=== PATIENT | male | born 1945 | race Caucasian/White ===

== ENCOUNTER → 2016-07-15 | Outpatient (CLI) | payer MEDICARE, OTHER | END | disposition home or self-care (01) | LOC: LAB.O 08:20 | PROVIDERS: ATTEND Nurse Practitioner Family | DX: E78.2 Mixed hyperlipidemia (principal); Z12.5 Encounter for screening for malignant neoplasm of prostate; E03.9 Hypothyroidism, unspecified | CPT/HCPCS: 36415; 80053; 80061; 84443; 85025; G0103 ==

== ENCOUNTER → 2016-08-22 | Outpatient (CLI) | payer MEDICARE, OTHER | END | disposition home or self-care (01) | LOC: YCFC.O 16:38 | PROVIDERS: ATTEND Nurse Practitioner Family | DX: E03.9 Hypothyroidism, unspecified (principal) ==

== ENCOUNTER → 2016-09-03 | Outpatient (CLI) | payer MEDICARE, OTHER | END | disposition home or self-care (01) | LOC: RESP 13:39 | PROVIDERS: ATTEND Nuclear Medicine Nuclear Cardiology | DX: R00.2 Palpitations (principal) ==

== ENCOUNTER → 2016-10-01 | Outpatient (CLI) | payer MEDICARE, OTHER | END | disposition home or self-care (01) | LOC: YCFC.O 16:10 | PROVIDERS: ATTEND Nurse Practitioner Family | DX: E03.9 Hypothyroidism, unspecified (principal) ==

== ENCOUNTER → 2017-03-03 | Outpatient (CLI) | payer MEDICARE, OTHER ==
--- NOTE | 2017-03-04 05:11 | RAD ---
Procedure: XR CHEST 2 VIEWS Exam Date: 03/03/2017 Ordering Provider: ELISABET Cam Clinical Indication: SOB Comparison: 06/09/2014 Findings: Cardiomediastinal silhouette: Within normal limits Pulmonary vasculature : Unremarkable Aortic contour: Unremarkable Focal lung consolidation: Peribronchial thickening without focal lung consolidation. Pleural effusion: None Pneumothorax: None Bones and soft tissues: Nonacute Impression: 1. Peribronchial thickening without focal lung consolidation. Electronically signed by: Boaz Blue MD 03/04/2017 5:10 AM [facility]
== END | disposition home or self-care (01) ==
LOC: LAB.O 07:11
PROVIDERS: ATTEND Nurse Practitioner Family
DX: E03.9 Hypothyroidism, unspecified (principal); R06.02 Shortness of breath; E78.2 Mixed hyperlipidemia; I10 Essential (primary) hypertension

== ENCOUNTER → 2017-03-19 | Outpatient (CLI) | payer MEDICARE, OTHER ==
--- NOTE | 2017-03-20 15:28 | RAD ---
EXAM DESCRIPTION: Chest,2 Views CLINICAL HISTORY: SOB. This is a 71-year-old male who presents with acute onset shortness of breath. COMPARISON: March 03, 2017. FINDINGS: 2 views of the thorax. Emphysema and chronic interstitial lung disease is present. No focal consolidation is present. Heart size is within normal limits. No acute osseous pathology is demonstrated IMPRESSION: Chronic interstitial lung disease. No convincing radiographic findings for acute cardiopulmonary disease. Electronically signed by: Franklin Subramanian MD 03/20/2017 3:26 PM [facility]
== END | disposition home or self-care (01) ==
LOC: RAD 15:14
PROVIDERS: ATTEND Nurse Practitioner Family
DX: R06.02 Shortness of breath (principal)

== ENCOUNTER 2017-05-01 21:18 | Emergency (ER) | payer MEDICARE, OTHER ==
[2017-05-01] MEDS ORDERED: ASPIRIN TABLET 325 MG TAB PO ONE (21:32)
[2017-05-01] MEDS ORDERED: NITROGLYCERIN 0.4 MG 25 EA TAB SL ONE (21:33)
[2017-05-01] MEDS ORDERED: HEPARIN PREMIX 500 ML ONE (21:40)
--- NOTE | 2017-05-01 21:42 | ED.PDOC ---
History of Present Illness - General Chief Complaint: Cardiovascular Problem Stated Complaint: chest pain Time Seen by Provider: 05/01/17 21:32 Source: patient Exam Limitations: no limitations - History of Present Illness Timing/Duration: 1-3 hours - 2 hrs [employer] Severity/Quality: moderate, other - burning Location: substernal Chest Pain Radiation: arms Activities at Onset: none Prior Chest Pain/Cardiac Workup: no prior chest pain Improving Factors: nothing Worsening Factors: nothing Nitro Today/Relief: no nitro taken today Aspirin Treatment Today: 325 mg x 1, provided at home Associated Symptoms: shortness of breath Allergies/Adverse Reactions: Allergies NO KNOWN ALLERGY Allergy (Verified 11/23/13 09:52) Home Medications: Ambulatory Orders Aspirin [Aspirin EC] 81 mg PO DAILY 11/23/13 Baclofen 10 mg PO BID 11/23/13 Clopidogrel Bisulfate 75 mg PO DAILY 11/23/13 Levothyroxine Sodium [Synthroid] 50 mcg PO DAILY 11/23/13 Metoprolol Succinate [Metoprolol Succinate ER] 25 mg PO DAILY 11/23/13 Niacin (Antihyperlipidemic) [Niaspan] 500 mg PO BID 11/23/13 Review of Systems - Review of Systems Constitutional: Denies: chills, diaphoresis, fever EENTM: States: no symptoms reported Respiratory: States: short of breath. Denies: cough, orthopnea Cardiology: States: chest pain. Denies: edema Gastrointestinal/Abdominal: States: nausea. Denies: abdominal pain, vomiting Genitourinary: States: no symptoms reported Musculoskeletal: States: no symptoms reported Skin: States: no symptoms reported Neurological: States: no symptoms reported Endocrine: States: no symptoms reported Past Medical History (General) - Patient Medical History Hx Seizures: No Hx Stroke: Yes - 5, last one 2011 Hx Dementia: No Hx Asthma: No Hx of COPD: No Hx Cardiac Disorders: Yes - hyperlipidema Hx Congestive Heart Failure: No Hx Pacemaker: No Hx Hypertension: Yes Hx Thyroid Disease: No Hx Diabetes: No Hx Gastroesophageal Reflux: No Hx Renal Disease: No Hx Cancer: No Hx of HIV: No Hx Hepatitis C: No Hx MRSA: No - Vaccination History Hx Tetanus, Diphtheria Vaccination: Yes Hx Influenza Vaccination: Yes Hx Pneumococcal Vaccination: Yes - Social History Hx Tobacco Use: Yes Hx Chewing Tobacco Use: No Hx Alcohol Use: No Hx Substance Use: No Hx Substance Use Treatment: No Hx Depression: No Hx Physical Abuse: No Hx Emotional Abuse: No Hx Suspected Abuse: No - Female History Patient : No Family Medical History - Family History Father Living Status: Age at (years of age): 93 Hx Cardiac Disease: Yes Physical Exam - Physical Exam General Appearance: Alert, Anxious, Obvious distress Eyes, Ears, Nose, Throat Exam: PERRL/EOMI, pharynx normal Neck: non-tender, full range of motion Respiratory: chest non-tender, lungs clear, normal breath sounds Cardiovascular/Chest: normal peripheral pulses, regular rate, rhythm, no edema Gastrointestinal/Abdominal: normal bowel sounds, non tender, soft Extremity: normal range of motion, non-tender, no pedal edema Neurologic: normal mood/affect, oriented x 3 Skin Exam: normal color, warm/dry Lymphatic: no adenopathy Progress - EKG/XRAY/CT EKG: Sinus, ST elevation - 1 mm elevation in inferior leads Comments: rate 60, DC 184, QRS 80, comparison 11/23/[address] 's inferiorly - Additional EKG/XRAY/Consults EKG #2: Navin, Sinus, ST elevation - inferior elevations more pronounced with reciprocal changes anterolaterally Comments: rate 57, DC 156, QRS 88 Departure - Departure Clinical Impression: Acute myocardial infarction Qualifiers: Myocardial infarction ST status: ST elevation myocardial infarction Involved coronary artery: other inferior wall coronary artery Qualified Code(s): I21.19 - ST elevation (STEMI) myocardial infarction involving other coronary artery of inferior wall Disposition: Transfer to Hospital Condition: Fair Departure Forms: ED Discharge - Pt. Copy, Patient Portal Self Enrollment Instructions: DI for Chest Pain Referrals: Tracey Cam NP [Primary Care Provider] - 1-2 Weeks Home Medications: Ambulatory Orders Aspirin [Aspirin EC] 81 mg PO DAILY 11/23/13 Baclofen 10 mg PO BID 11/23/13 Clopidogrel Bisulfate 75 mg PO DAILY 11/23/13 Levothyroxine Sodium [Synthroid] 50 mcg PO DAILY 11/23/13 Metoprolol Succinate [Metoprolol Succinate ER] 25 mg PO DAILY 11/23/13 Niacin (Antihyperlipidemic) [Niaspan] 500 mg PO BID 11/23/13 Comments: Dr Rivers accepted transfer of pt to [facility]
[2017-05-01 21:43] VITALS: TEMP 98.6; O2SAT 95
[2017-05-01] MEDS ORDERED: HEPARIN PREMIX 25,000 UNITS in PREMIX BAG 1 BAG IVS SCH (21:45)
[2017-05-01] MEDS ORDERED: NITROGLYCERIN/D5W IV 50,000 MCG in PREMIX BOTTLE 1 BOTTLE IVS SCH (22:00)
[2017-05-01] MEDS ORDERED: SODIUM CHLORIDE 0.9% 1000ML 1,000 ML ONE (22:02)
[2017-05-01] MEDS ORDERED: SODIUM CHLORIDE 0.9% 500ML 500 ML IVS ONE (22:07)
[2017-05-01] MEDS ORDERED: TENECTEPLASE 50 MG VIAL ONE (22:08)
[2017-05-01] MEDS ORDERED: TENECTEPLASE 50 MG VIAL IV ONE (22:15)
--- NOTE | 2017-05-01 22:22 | RAD ---
EXAM: Chest,1 View CLINICAL INDICATION: 71-year-old male with chest pain. TECHNIQUE: Single view, AP portable chest was obtained. COMPARISON: Single view chest 03/19/2017. FINDINGS: Unremarkable cardiac and mediastinal silhouette. Heart size is normal. Hazy bilateral basilar opacities may be secondary to subsegmental atelectasis or scarring similar in comparison to the previous examination, however for which superimposed infectious process cannot be excluded. Lungs are otherwise clear without focal opacity, pneumothorax or pleural effusions. The visualized bones are within normal limits. IMPRESSION: Hazy bilateral basilar opacities similar in comparison to the previous examination may be secondary to subsegmental atelectasis or consolidation, however superimposed infectious cannot be excluded. Please correlate with patient clinical findings and consider follow-up for resolution. Electronically signed by: Meseret Mariano MD 05/01/2017 10:21 PM [facility]
[2017-05-01] MEDS ORDERED: HEPARIN SODIUM (PORCINE) 5,000 U/ML VIAL IV ONE (22:34)
[2017-05-02 02:04] VITALS: BP 128/78
== END 2017-05-01 23:00 | disposition short-term general hospital (02) ==
LOC: ER 21:18
DX: I21.19 ST elevation (STEMI) myocardial infarction involving other coronary artery of inferior wall (principal); E78.5 Hyperlipidemia, unspecified; I10 Essential (primary) hypertension; Z86.73 Personal history of transient ischemic attack (TIA), and cerebral infarction without residual deficits; Z87.891 Personal history of nicotine dependence
CPT/HCPCS: 36415; 71045; 80053; 84484; 85025; 93005; J1644; J3101; J7030

== ENCOUNTER → 2017-07-30 | Outpatient (CLI) | payer MEDICARE, OTHER ==
--- NOTE | 2017-07-31 10:40 | RAD ---
EXAM DESCRIPTION: Chest,2 Views CLINICAL HISTORY: SOB COMPARISON: Previous study May 01, 2017 TECHNIQUE: PA/lateral FINDINGS: There is no acute appearing cardiac or pulmonary abnormality. Heart size is normal with normal pulmonary vascularity. No pleural effusion or pneumothorax. Lungs are clear with no consolidating infiltrate. Lateral view shows intact sternum and T-spine. Lung bases appear better aerated than on the previous study. Minimal discoid atelectasis or linear scarring may account for mildly increased markings in the lower lobes. IMPRESSION: No acute process is identified in the chest. Electronically signed by: Cain Ray MD 07/31/2017 10:39 AM CDT
== END ==
LOC: LAB.O 16:27
PROVIDERS: ATTEND Nurse Practitioner Family
DX: R06.02 Shortness of breath (principal); R06.00 Dyspnea, unspecified

== ENCOUNTER → 2017-10-07 | Outpatient (CLI) | payer MEDICARE, OTHER | LOC: YCFC.O 07:15 | PROVIDERS: ATTEND Nurse Practitioner Family | DX: E78.2 Mixed hyperlipidemia (principal); I21.9 Acute myocardial infarction, unspecified; I10 Essential (primary) hypertension; Z86.73 Personal history of transient ischemic attack (TIA), and cerebral infarction without residual deficits; Z13.220 Encounter for screening for lipoid disorders ==

== ENCOUNTER → 2018-01-13 | Outpatient (CLI) | payer MEDICARE, OTHER ==
--- NOTE | 2018-01-14 09:05 | CT ---
Procedure: CT LUNG SCREENING Exam Date: 03/15/2018. Ordering Provider: Bradley Moreno Clinical Indication: LUNG SCREEN This patient meets eligibility criteria for low-dose CT lung cancer screening. Comparison: None. Technique: Using a multislice scanner, sequential helical axial imaging was obtained in the thorax, 2.5 mm thickness, 2.5 mm separation, from the level of the thoracic inlet through the lung bases without IV contrast. A low dose protocol was utilized. CTDI: 1.75 mGy. 120. kVp. 45 mA. 2D sagittal and coronal reconstructed images, 6.0 mm thickness, were obtained. This exam was performed according to our departmental dose optimization program which includes use of automated exposure control, adjustment of the mA and/or kV according to patient size and/or use of iterative reconstruction technique. Measurements of nodules less than 1 cm in greatest diameter will be given as the mean value. FINDINGS: Lungs and large airways: Multiple emphysematous centrilobular blebs bilateral upper lung wright slightly decreasing in frequency toward the lower lung wright. Pleural-based bulla are present. 7 mm solid nodule in the lingula of the left middle lobe on axial sequence 2, images 66-67, might be associated with the lingular fissure, with short dimension craniocaudal. No calcification. Scarring abutting the superior left major fissure and the pleura. Groundglass nodule 5 mm in the posterior left upper lobe on image 30. 3 mm nodule subpleural lateral superior segment left lower lobe with pleural extension on image 86. Groundglass nodule/density measuring 1.4 x 1.0 x 0.8 cm in the anterior lateral aspect of the superior segment of the right lower lobe on axial images 78-83 and sagittal series 602, images 30-34. Solid nodule measuring 4 mm in the anterior inferior right upper lobe subpleural location on axial series 2, image 51. Pleura: Bilateral apical pleural thickening and scarring. No pleural effusion or pneumothorax. Mediastinum and galina: evaluation limited by low dose technique and lack of IV contrast. No enlarged lymph nodes or soft tissue masses. Heart and great vessels: Coronary artery calcifications. Possible stent in the right coronary artery. Atherosclerotic calcifications of the aorta. Chest wall, lower neck, axillae: Evaluation also limited by same factors as described above. Small axilla nodes bilaterally. Upper abdomen: Included peritoneal cavity with no mass or fluid. Normal size and density of the adrenal glands and spleen. Surgical clips in the gallbladder fossa. Bones: Minimal thoracic spondylosis IMPRESSION: Groundglass density in superior segment of the right lower lobe greatest diameter 1.4 cm. 7 mm solid nodule in the left middle lobe, possibly associated with the lingular fissure. Groundglass nodular 5 mm in the left upper lobe. 4 mm solid nodule in the right upper lobe. Emphysematous changes probably centrilobular, throughout the lungs more severe in the upper lung wright with more pleural-based bulla in the upper lobes. Please see lung RADS category and recommendations below. Lung RADS category Category 3 - Probably benign (1-2% malignancy probability), short term follow-up suggested. Nodules: Solid nodule(s) 6mm to less than 8mm at baseline, or new 4mm to under 6mm solid nodule. Solid nodule(s) 6mm to less than 8mm at baseline, or new 4mm to under 6mm solid nodule. Follow-up: Please return for a Low Dose Chest CT in 6 months for re-evaluation. Electronically signed by: Michael Alvarez MD 01/14/2018 8:55 AM CDT
== END ==
LOC: CT 13:30
PROVIDERS: ATTEND Family Medicine
DX: Z87.891 Personal history of nicotine dependence (principal); Z12.2 Encounter for screening for malignant neoplasm of respiratory organs; R91.1 Solitary pulmonary nodule

== ENCOUNTER → 2018-03-29 | Outpatient (CLI) | payer MEDICARE, OTHER | LOC: LAB.O 08:14 | PROVIDERS: ATTEND Nurse Practitioner Family | DX: E03.9 Hypothyroidism, unspecified (principal); I10 Essential (primary) hypertension; E78.2 Mixed hyperlipidemia; Z12.5 Encounter for screening for malignant neoplasm of prostate | CPT/HCPCS: 36415; 80053; 80061; 84443; 85025; G0103 ==

== ENCOUNTER → 2018-04-21 | Outpatient (CLI) | payer MEDICARE, OTHER | LOC: LAB.O 10:35 | PROVIDERS: ATTEND Nurse Practitioner Family | DX: E03.9 Hypothyroidism, unspecified (principal) ==

== ENCOUNTER → 2018-05-04 | Outpatient (CLI) | payer MEDICARE, OTHER ==
--- NOTE | 2018-05-04 19:06 | CT ---
EXAM DESCRIPTION: Chest w/o Contrast CLINICAL HISTORY: 72 years, Male, LUNG NODULE MULTIPLE COMPARISON: CT lung screening study January 13, 2018 TECHNIQUE: Thin-section noncontrast axial CT images are obtained according to our protocol. Reconstructed MPR images are created and reviewed as well. FINDINGS: Lungs: Biapical pleural parenchymal scarring is unchanged in configuration compared to previous study. No enlarging area or area of increasing thickness or change in shape to suggest complicating scar carcinoma. Severe emphysema is seen bilaterally. Small nodule in the anterior segment right upper lobe appears unchanged and measures 6 mm. Another small nodule in the anterior segment left upper lobe measures 8 mm and is also unchanged. Small nodular density along the right major fissure is consistent with intramammary lymph node. Minimal linear scarring in the lingula and right middle lobe. Peripheral nodule in the lateral basal segment right lower lobe measures 8 mm on the present study compared to 6 mm on the previous exam. There was blurring from respiratory motion on the previous study and this may account for the variance. With question of slight increase in size, six-month follow-up CT is recommended. No acute-appearing consolidation. Tiny cavitary nodules in the peripheral left lower lobe are unchanged, the larger measuring 6 mm. Mediastinum: Lymph nodes are normal in size. Normal vascular contours. Heart size is normal with no pericardial effusion. There is extensive coronary arterial calcification. Chest wall/axilla: No mass or adenopathy. Lower neck/supraclavicular: No mass or adenopathy. Upper abdomen: Question gallstone. Otherwise unremarkable upper abdominal viscera. Coronal and sagittal reformatted images confirm the findings. IMPRESSION: Right lower lobe nodule measures 2 mm larger than on previous study. Six month follow-up chest CT is recommended. Severe diffuse emphysema. Biapical pleural parenchymal scarring appears stable. Other small pulmonary nodules appear stable. Extensive coronary arterial calcification. This exam was performed according to our departmental dose-optimization program, which includes automated exposure control, adjustment of the mA and/or kV according to patient size and/or use of iterative reconstruction technique. Total DLP equals 592.92 mGycm. Electronically signed by: Cain Ray MD 05/04/2018 7:04 PM [employer] CL[employer]
== END ==
LOC: CT 15:35
PROVIDERS: ATTEND Internal Medicine
DX: J84.9 Interstitial pulmonary disease, unspecified (principal); R91.1 Solitary pulmonary nodule; J43.9 Emphysema, unspecified; I25.10 Atherosclerotic heart disease of native coronary artery without angina pectoris

== ENCOUNTER → 2018-06-24 | Outpatient (CLI) | payer MEDICARE, OTHER | LOC: YCFC.O 16:27 | PROVIDERS: ATTEND Nurse Practitioner Family | DX: E03.9 Hypothyroidism, unspecified (principal) ==

== ENCOUNTER → 2018-07-05 | Outpatient (CLI) | payer MEDICARE, OTHER ==
--- NOTE | 2018-07-06 09:16 | CT ---
EXAM DESCRIPTION: Chest w/o Contrast CLINICAL HISTORY: 72 years Male, ABNORMAL LOW DOSE SCREENING COMPARISON: CT chest 05/04/2018, 01/13/2018. TECHNIQUE: CT images through the chest without IV contrast. Multiplanar reformations were provided. This exam was performed according to our departmental dose-optimization program, which includes automated exposure control, adjustment of the mA and/or kV according to patient size and/or use of iterative reconstruction technique. CT CHEST FINDINGS: Heart and mediastinum: Heart is normal size. No significant pericardial effusion. Mild aortic atherosclerosis. Extensive coronary calcification redemonstrated. No mediastinal lymphadenopathy. Evaluation for hilar lymphadenopathy limited without intravenous contrast. Esophagus is unremarkable. Thyroid Gland: Normal. Lungs: Bilateral emphysematous changes. Biapical pleural scarring. Stable 6 mm round solid pulmonary nodule in the right upper lobe on image 56. Stable 9 mm oval solid pulmonary nodule in the right lower lobe on image 84. Stable 7 mm irregular nodule in the posterior lateral left lower lobe on image 84. Airways: No filling defects or bronchiectasis. Pleura: No effusion or pneumothorax. Subphrenic Structures: Degenerative changes of spinal no acute fracture or aggressive appearing osseous lesion. Soft tissues unremarkable with no axillary lymphadenopathy. Musculoskeletal and Soft Tissues: Within normal limits for age. IMPRESSION: 1. No acute abnormality of the chest. 2. Bilateral pulmonary nodules measuring up to 9 mm in the right lower lobe are unchanged from 05/04/2018, but increased from 01/13/2018 as previously mentioned on this comparison report. Continue follow-up is recommended Fleischner guidelines below. 3. Emphysema. Multiple Solid lung nodules > 8 mm: Follow up management based on most suspicious nodule. In a low-risk patient, recommend a non-contrast Chest CT at 3-6 months, then consider another non-contrast Chest CT at 18-24 months. In a high-risk patient, recommend a non-contrast Chest CT at 3-6 months, then another non-contrast Chest CT at 18-24 months. These guidelines do not apply to patients younger than 35 years, immunocompromised patients, and patients with cancer. F/u in patients with significant comorbidities as clinically warranted. For lung cancer screening, adhere to Lung-RADS guidelines. Reference: Radiology. 2017 Sep; 284(1):228-24 Electronically signed by: Rusty Cesar MD 07/06/2018 9:13 AM CDT
== END ==
LOC: CT 15:26
PROVIDERS: ATTEND Family Medicine
DX: Z87.891 Personal history of nicotine dependence (principal); R91.8 Other nonspecific abnormal finding of lung field; J43.9 Emphysema, unspecified

== ENCOUNTER → 2018-10-06 | Outpatient (CLI) | payer MEDICARE, OTHER | LOC: LAB.O 07:05 | PROVIDERS: ATTEND Nurse Practitioner Family | DX: E03.9 Hypothyroidism, unspecified (principal); I10 Essential (primary) hypertension; E78.2 Mixed hyperlipidemia; E55.9 Vitamin D deficiency, unspecified; E56.9 Vitamin deficiency, unspecified; D50.9 Iron deficiency anemia, unspecified; Z12.5 Encounter for screening for malignant neoplasm of prostate | CPT/HCPCS: 36415; 80053; 80061; 82306; 82728; 83540; 83550; 84439; 84443; 84481; 85025; 86376; G0103 ==

== ENCOUNTER → 2018-11-09 | Outpatient (CLI) | payer MEDICARE, OTHER ==
--- NOTE | 2018-11-10 08:52 | US ---
US THYROID CLINICAL STATEMENT: ACQUIRED HYPOTHYROIDISM. COMPARISON: CT scan of the chest and lower neck on 07/05/2018. TECHNIQUE: Transcutaneous scanning, grayscale and Doppler modes. FINDINGS: Significant amount of thyroid tissue not seen, including bilateral lobes and isthmus. Estimated total number of nodules greater than or equal to 1 cm: None. No dominant soft tissue mass or distinct cyst. No large calcifications or fluid collection. IMPRESSION: 1. No discernible thyroid tissue seen in the normal location. Patient hypothyroid. This is in agreement with CT scan 4 months ago. 2. Consider radionuclide I-123 uptake measurements and scan. This would be helpful to evaluate thyroid uptake of iodine, assess functioning thyroid tissue, and determine if there is an autonomous thyroid nodule or cold nodule. *ACR TI-RADS 2017 Recommendations for thyroid nodule imaging: TR1: No FNA or follow up TR2: No FNA or follow up TR3: FNA if >/= 2.5 cm, follow up if 1.5 - 2.4 cm in 1, 3, and 5 years TR4: FNA if >/= 1.5 cm, follow up if 1.0 - 1.4 cm in 1, 2, 3, and 5 years TR5: FNA if >/= 1.0 cm, follow up if 0.5 - 0.9 cm every year for 5 years ACR TI-RADS recommends that no more than two nodules with the highest ACR TI-RADS total point should be biopsied and no more than four nodules should be followed. These recommendations do not apply to patients with increased risk for thyroid cancer or patients with symptomatic thyroid disease. Electronically signed by: Michael Alvarez MD 11/10/2018 8:50 AM CDT
== END ==
LOC: US 15:36
PROVIDERS: ATTEND Internal Medicine Endocrinology, Diabetes & Metabolism
DX: E03.9 Hypothyroidism, unspecified (principal); Z83.49 Family history of other endocrine, nutritional and metabolic diseases

== ENCOUNTER → 2019-01-10 | Outpatient (CLI) | payer MEDICARE, OTHER ==
--- NOTE | 2019-01-11 09:30 | CT ---
EXAM DESCRIPTION: Chest w/o Contrast CLINICAL HISTORY: 73 years Male, Multiple nodules of lung COMPARISON: CT chest dated 07/05/2018, 05/04/2018 and 01/13/2018. TECHNIQUE: Contiguous thin section axial images through the chest were obtained without the administration of intravenous contrast. Sagittal and coronal reconstructions were reviewed. FINDINGS: The visualized thyroid gland and supraclavicular region appear normal. No evidence of abnormally enlarged mediastinal, hilar or axillary lymphadenopathy. Trachea is midline and the central tracheobronchial tree is patent. Severe emphysema bilateral lungs with mild scarring in the apices. 5 mm nodule is identified in the right upper lobe on image #30. 4.5 mm pleural-based nodule is identified along the right major fissure in the right lower lobe. 8mm nodule is identified in the right lower lobe on image #43. 6 mm nodule is identified in the left lower lobe on image #38. 8.5 mm nodule is identified in the left upper lobe on image #32. No evidence of pleural effusions. The heart is normal in size with no pericardial effusion. The visualized aorta is nonaneurysmal with mild atherosclerosis. The superior vena cava is normal in size and caliber. Moderate coronary artery atherosclerosis. The esophagus appears normal throughout its visualized length. Limited evaluation of the upper abdomen demonstrates no gross abnormality. Mild degenerative changes identified throughout the visualized bones. IMPRESSION: Multiple bilateral pulmonary nodules the largest measuring 8mm in the right lower lobe. These appear stable compared to prior chest CT dated 07/05/2018. Consider noncontrast chest CT at 18-24 months to document stability. This exam was performed according to our departmental dose-optimization program, which includes automated exposure control, adjustment of the mA and/or kV according to patient size and/or use of iterative reconstruction technique. Electronically signed by: Sarah Rasmussen MD 01/11/2019 9:29 AM CDT
== END ==
LOC: CT 15:35
PROVIDERS: ATTEND Internal Medicine
DX: J98.4 Other disorders of lung (principal); R91.8 Other nonspecific abnormal finding of lung field